=== PATIENT | male | born 2000 | race Caucasian/White ===

== ENCOUNTER 2021-07-31 18:12 | Emergency (ER) | payer OTHER ==
[~2021-07-31] VITALS: Ht 182.9 cm; Wt 81.6 kg
[2021-07-31 18:20] VITALS: BP 140/77
--- NOTE | 2021-07-31 18:24 | NUR ---
PT TAKEN TO [facility].
--- NOTE | 2021-07-31 18:25 | NUR ---
Miguel serrano in [facility] - 07/31/21 at 1833 by MADHURI Patient returned from RAD
--- NOTE | 2021-07-31 18:25 | NUR ---
Patient returned from RAD
--- NOTE | 2021-07-31 18:31 | NUR ---
Patient returned from RAD
--- NOTE | 2021-07-31 18:33 | NUR ---
21 y/o M BIB self from home c/o R hand pain and swelling since yesterday morning. Patient reports at a swim meet performing a butterfly when he hit his R hand on a bulk head. Patient states pain worsened this morning with noted redness and swelling to anterior aspect of R hand. Pt denies medications prior to arrival; reports 06/20, dull/intermittent, non-radiating pain. TDAP and vaccinations up to date. Pt denies fever, chills, drainge, bleeding, numbness, tingling. Bed locked in lowest position, side rails x 1. PMH/Meds: mirtazapine NKDA Sx: denies
--- NOTE | 2021-07-31 18:33 | NUR ---
Dr. Suggs is evaluating patient at bedside
[2021-07-31] MEDS ORDERED: ceFAZolin 1,000 MG VIAL IM ONE (19:15)
[2021-07-31] MEDS ORDERED: CEPH-588 PO (19:20)
[2021-07-31] MEDS ORDERED: SULF-59 PO (19:20)
[2021-07-31] MEDS ORDERED: WATER STERILE 10 ML MC ONE (19:31)
--- NOTE | 2021-07-31 19:34 | NUR ---
Patient discharged with v/s stable. Written and verbal after care instructions given and explained. Patient alert, oriented and verbalized understanding of instructions. Ambulatory with steady gait. All questions addressed prior to discharge. ID band removed. Patient advised to follow up with PMD. Rx of Keflex, Bactrim Ds Tablet given. Patient educated on indication of medication including possible reaction and side effects. Opportunity to ask questions provided and answered.
== END 2021-07-31 19:34 | disposition home or self-care (01) ==
LOC: MED 18:12
DX: S61.401A Unspecified open wound of right hand, initial encounter (principal); L08.89 Other specified local infections of the skin and subcutaneous tissue; L03.113 Cellulitis of right upper limb; F32.9 Major depressive disorder, single episode, unspecified; Z79.2 Long term (current) use of antibiotics; W22.8XXA Striking against or struck by other objects, initial encounter; Y93.11 Activity, swimming; Y92.34 Swimming pool (public) as the place of occurrence of the external cause; Y99.8 Other external cause status
CPT/HCPCS: 73130; 96372; 99283; J0690